=== PATIENT | male | born 2000 | race Caucasian/White ===

== ENCOUNTER → 2021-10-19 16:57 | Outpatient (BNVA) | payer BC, SELFPAY | PROVIDERS: Visit Provider Registered Nurse Neonatal Intensive Care | DX: S99.912A Unspecified injury of left ankle, initial encounter (principal); X58.XXXA Exposure to other specified factors, initial encounter | CPT/HCPCS: 73610 ==

== ENCOUNTER 2022-04-11 12:02 | Emergency (ER) | payer BC, MEDICAID, SELFPAY ==
[2022-04-11 12:10] VITALS: BP 150/81; PULSE 60; RESP 16; TEMP 36.9; O2SAT 99; BMI 19.9
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
== END 2022-04-11 13:44 | disposition home or self-care (01) ==
PROVIDERS: Emergency Provider Emergency Medicine; PCP Family Medicine
DX: Z04.1 Encounter for examination and observation following transport accident (principal); V86.59XA Driver of other special all-terrain or other off-road motor vehicle injured in nontraffic accident, initial encounter
CPT/HCPCS: 70450; 72125; 73090; 73560; 99284